=== PATIENT | male | born 1940 | race African-American/Black ===

== ENCOUNTER 2017-09-08 21:57 | Emergency (ER) | payer MEDICARE, OTHER ==
[~2017-09-08] VITALS: Ht 172.7 cm; Wt 73.0 kg
[~2017-09-08 21:57] MED LIST: CINA30TA2 PO; CLOP75TA28 PO; GABA100C9 PO; LEVE250T18 PO; MEGE40TA15 PO; PANT40TA2 PO; SIMV-8 PO
[2017-09-08] MEDS ORDERED: SODIUM CHLORIDE 0.9% 250 ML IV ONE (22:30)
[2017-09-08 23:01] LABS: Basophils # (auto) 0 uL; Basophils % (auto) 0.5 % (0.0-2.0); Eosinophils # (auto) 0.2 uL; Hemoglobin 12.6 g/dL (13.5-17.5); Lymphocytes % (auto) 13.7 % (10.0-50.0); Mean Corpuscular Hemoglobin 29.8 pg (28.0-32.0); Mean Corpuscular Hgb Conc. 32.4 g/dL (32.0-36.0); Mean Corpuscular Volume 91.9 fL (80.0-100.0); Monocytes # (auto) 0.6 uL; Monocytes % (auto) 8.5 % (0.0-12.0); Neutrophils # (auto) 5.5 uL; Neutrophils % (auto) 74.3 % (37.0-80.0); Nucleated Red Blood Cells % 0.1 %; Platelet Count (auto) 256 10^3/uL (140-450); Red Blood Cells 4.24 10^6/uL (4.5-5.90); Red Cell Distribution Width 18.6 % (11.8-14.3); White Blood Cell 7.4 10^3/uL (4.4-10.8)
[2017-09-08 23:20] LABS: INR 0.99 (0.9-1.15); Partial Thromboplastin Time 27.5 sec (22.64-33.71); Prothrombin Time 10.8 sec (9.37-12.3)
[2017-09-09 01:18] LABS: Albumin 3.3 g/dL (3.4-5.0); BUN/Creatinine Ratio 5.5; Bilirubin, Total 0.4 mg/dL (0.2-1.0); Calcium 7.8 mg/dL (8.5-10.1); Magnesium 1.8 mg/dL (1.6-2.6); Potassium 4.6 mmol/L (3.5-5.1); Total Protein 7.3 g/dL (6.4-8.2)
[2017-09-09 03:20] VITALS: BP 111/58
== END 2017-09-09 03:35 | disposition home or self-care (01) ==
LOC: EDBD 21:57 → EDUNIT# 21:57 → ER 22:04
DX: R55 Syncope and collapse (principal); E86.9 Volume depletion, unspecified; F17.210 Nicotine dependence, cigarettes, uncomplicated; I25.810 Atherosclerosis of coronary artery bypass graft(s) without angina pectoris; Z95.1 Presence of aortocoronary bypass graft; Z91.041 Radiographic dye allergy status; N18.6 End stage renal disease; E78.5 Hyperlipidemia, unspecified; E07.9 Disorder of thyroid, unspecified; Z99.2 Dependence on renal dialysis
CPT/HCPCS: 36415; 70450; 71045; 80053; 83735; 83880; 84443; 84484; 85025; 85610; 85730; 93005; 94761; 96360; 99285; J7050